=== PATIENT | female | born 1960 | race Caucasian/White ===

== ENCOUNTER → 2022-03-04 | Day surgery (SDC) | payer MEDICARE, OTHER ==
[~2022-03-04] VITALS: Ht 154.9 cm; Wt 104.5 kg
[~2022-03-04] MED LIST: AMLODIPINE BESYL5 MG PO; ASPIRIN EC325 MG PO; BACLOFEN10 MG PO; ESOMEPRAZOLE MA40 MG PO; FLUOXETINE HCL20 MG PO; IMATINIB MESYL400 MG PO; LIPITOR40 MG PO; LISINOPRIL 10MG10 MG PO; MELOXICAM7.5 MG PO; METFORMIN HCL500 M3 PO; PROMETHEGA12.5 MG/SU PR; ZOFRAN4 MG PO
[2022-03-04 09:22] LABS: HGB 10.2 g/dl (12.5-16.0); MCH 29.5 pg (25.0-31.0); MCHC 32.9 g/dL (32.0-36.0); MCV 89.6 fL (78.0-100.0); MPV 9.4 fL (6.0-9.5); RBC 3.46 M/uL (4.20-5.40); RDW 15.2 % (11.5-14.0); WBC 6.7 K/uL (4.0-10.5)
[2022-03-04 10:01] LABS: ALBUMIN 3.6 g/dL (3.4-5.0); BILIRUBIN - TOTAL 0.3 mg/dL (0.2-1.0); BUN/CREAT RATIO (CALC) 14.7 RATIO; CREATININE 0.75 mg/dL (0.51-0.95); GLOBULIN (CALCULATION) 3.9 g/dL; POTASSIUM 4.5 mmol/L (3.5-5.1); TOTAL PROTEIN 7.5 g/dL (6.4-8.2)
== END | disposition home or self-care (01) ==
LOC: FAS 08:27
PROVIDERS: Surgery
DX: D50.0 Iron deficiency anemia secondary to blood loss (chronic) (principal); K92.1 Melena; K21.00 Gastro-esophageal reflux disease with esophagitis, without bleeding; K29.60 Other gastritis without bleeding; K57.30 Diverticulosis of large intestine without perforation or abscess without bleeding; K63.89 Other specified diseases of intestine; K64.0 First degree hemorrhoids; K31.9 Disease of stomach and duodenum, unspecified; E78.5 Hyperlipidemia, unspecified; I10 Essential (primary) hypertension; E11.9 Type 2 diabetes mellitus without complications; Z88.4 Allergy status to anesthetic agent; Z88.1 Allergy status to other antibiotic agents; Z88.8 Allergy status to other drugs, medicaments and biological substances
CPT/HCPCS: 36415; 80053; J1100; J1610; J2250; J2405; J2704; J7120